=== PATIENT | female | born 1995 | race Caucasian/White ===

== ENCOUNTER 2024-02-24 09:51 | Outpatient (CLI) | payer OTHER, SELFPAY ==
--- OUTSIDE RECORDS SUMMARY | 2024-02-25 11:42 | XMS_ITS | Clinical Summary ---
Author Organization [facility] Address [address] [place] [id number] Care Team Providers Care Provider Relations Consultant Name Role Phone No Ref-Primary, Physician Primary Care Provider Allergies Active Allergy Reactions Criticality Noted Date Comments Penicillins Hives 12/03/2015 vomiting Medications Medication Sig Dispensed Refills Start Date End Date Status albuterol (PROAIR HFA/PROVENTIL HFA/VENTOLIN HFA) 108 (90 BASE) MCG/ACT Inhaler Inhale 2 puffs into the lungs as needed for shortness of breath / dyspnea or wheezing Active VITAMIN A PO Take 1 tablet by mouth daily Active Cholecalciferol (VITAMIN D PO) Take 1 tablet by mouth daily Active multivitamin w/minerals (MULTI-VITAMIN) tablet Take 1 tablet by mouth daily Active clomiPHENE (CLOMID) 50 MG tabletIndications:I nfertility management Take 2 tablets (100 mg) by mouth daily for 5 days Start taking medication on cycle day 3 10 tablet 09/12/2018 Active Active Problems Problem Noted Date Diagnosed Date Menorrhagia with regular cycle 10/27/2017 Dysmenorrhea 10/27/2017 Immunizations Name Administration Dates Next Due TDAP Vaccine (Boostrix) 02/16/2008 Family History Medical History Relation Comments Family History Negative Father Family History Negative Mother Breast Cancer Paternal Grandmother Breast Cancer Sister 1 Relation Status Comments Brother 1 Alive Brother 2 Alive Brother 3 Alive Brother 4 Alive Father Alive Mother Alive Paternal Grandfather Alive Paternal Grandmother Alive Sister 1 Alive Sister 2 Alive Sister 3 Alive Sister 4 Alive Social History Tobacco Use Types Packs/Day Years Used Date Smoking Tobacco: Never Smokeless Tobacco: Never Tobacco Cessation:Counseling Given: No Alcohol Use Standard Drinks/Week Comments No 0 (1 standard drink = 0.6 oz pur e alcohol) PHQ-2 Answer Date Recorded PHQ-2 Score 0 05/25/2018 Adolescent Education Answer Date Record ed Getting School Help Needed Not on file 02/05 Sex and Gender Information Value Date Recorded Sex Assigned at Not on file Gender Identity Not on file Sexual Orientation Not on file Last Filed Vital Signs Vital Sign Reading Time Taken Comments Blood Pressure 112/70 08/16/2018 10:10 AM CDT Pulse 68 06/23/2018 10:13 AM 5TH GRADE TEACHER Temperature 36.9 ??C (98.4 ??F) 05/30/2017 9:47 AM CS T Respiratory Rate 16 05/30/2017 9:47 AM 5TH GRADE TEACHER Oxygen Saturation 96% 05/30/2017 9:47 AM 5TH GRADE TEACHER Inhaled Oxygen Concentration - - Weight 61.7 kg (136 lb) 08/16/2018 10:10 AM CDT Height 165.1 cm (5' 5) 08/16/2018 10:10 AM CDT Body Mass Index 22.63 08/16/2018 10:10 AM CDT Plan of Treatment Not on file Care Teams Provider Relations Consultant Relationship Specialty Start Date End Date No Ref-Primary, Physician PCP - General 05/06/17
--- OUTSIDE RECORDS SUMMARY | 2024-02-25 11:42 | XMS_ITS | Referral Summary ---
Author Organization [facility] Address [address] [place] [address] Care Team Providers Care Performing Arts Road Manager Name Role Phone No Ref-Primary, Physician Primary [...] Dates Next Due TDAP Vaccine (Boostrix) 02/16/2008 Social History Tobacco Use Types Packs/Day Years [...] AM CDT Pulse 68 06/23/2018 10:13 AM RETAIL ADMINISTRATIVE ASSISTANT Temperature 36.9 ??C (98.4 ??F) 05/30/2017 9:47 AM CS T Respiratory Rate 16 05/30/2017 9:47 AM RETAIL ADMINISTRATIVE ASSISTANT Oxygen Saturation 96% 05/30/2017 9:47 AM RETAIL ADMINISTRATIVE ASSISTANT Inhaled Oxygen Concentration - - Weight 61.7 kg (136 lb) 08/16/2018 10:10 AM CDT Height 165.1 cm (5' 5) 08/16/2018 10:10 AM CDT Body Mass Index 22.63 08/16/2018 10:10 AM CDT Plan of Treatment Not on file Care Teams Performing Arts Road Manager Relationship Specialty Start Date End Date No Ref-Primary, Physician PCP - General 05/06/17
--- OUTSIDE RECORDS SUMMARY | 2024-02-25 11:42 | XMS_ITS | Clinical Summary ---
Author Organization [facility] Address [place], [place] [address] Care Team Providers Care Robotics Application Engineer Name Role Phone Darlin Curtis MD Primary Care Prov ider Allergies Active Allergy Reactions Criticality Noted Date Comments Penicillins Hives 12/03/2015 vomiting Medications Medication Sig Dispensed Refills Start Date End Date Status albuterol HFA (PRO-AIR,VENTOLIN,OK OVENTIL) 90 mcg/actuation inhalerIndications:A sthma, mild intermittent, with acute exacerbation Inhale 2 Puffs by mouth 4 times daily if needed. 2 Inhaler 1 10/26/2014 Active albuterol (PROVENTIL) 0.083 % neb solutionIndications: Asthma, mild intermittent, with acute exacerbation Inhale 3 mL via a nebulizer every 6 hours if needed for Shortness Of Breath. 1 box 1 10/26/2014 Active betamethasone dipropionate 0.05% (DIPROSONE 0.05% CREAM) 0.05 % creamIndications:Ecz caitlin, unspecified type apply to affected areas of lower abdomen twice daily for two weeks, then twice a week as needed 45 g 01/21/2023 Active FLUoxetine (PROZAC) 20 mg capsuleIndications:P ostpartum depression Take 2 Capsules (40 mg) by mouth every morning. 60 Capsule 5 08/23/2023 Active Active Problems Problem Noted Date Diagnosed Date Pap smear for cervical cancer screening 09/03/19 24 Overview (09/03/2023): 08/2023 NIL/HPV negative Plan: HPV based testing in 5 years History of depression 10/17/2022 PUPPP (pruritic urticarial p apules and plaques of ) 10/17/2022 Immunization not carried out because of caregive r refusal 06/19/2014 Immunization not carried out because of parent r efusal 06/19/2014 Schmorl's nodes of lumbar region 08/28/2009 HLA B27 positive 08/28/2009 L5-S1 Disk Bulge 08/23/2009 Resolved Problems Problem Noted Date Diagnosed Date Resolved Date (normal spontaneous vaginal delivery) 10/18/2022 11/30/2022 Liveborn 10/18/2022 11/30/2022 Nuchal cord with compression , delivered, current hospitalization 10/18/2022 11/30/2022 Umbilical cord around body 10/18/2022 0 11/30/2022 Meconium in amniotic fluid 10/18/2022 0 11/30/2022 High-risk , third trimester 10/17/2022 11/30/2022 Pre-eclampsia, third trimester 10/17/2022 11/30/2022 Supervision of res ulting from assisted reproductive technology 10/17/2022 023 Overview (10/17/2022): IVF 05/13/2020 11/30/2022 Overview (11/11/2020): Component Latest Ref Rng & Units 11/07/2020 Vaginal/Rectal OB Strep B PCR Negative Estimated Date of Delivery: 12/06/20 Patient's last menstrual period was 03/01/2020. Last Tdap- 09/25/2020 Last Flu vaccine- 02/13/2020 Glucose (GTT) result- Component Latest Ref Rng & Units 09/04/2020 HEMOGLOBIN 12.0 - 16.0 g/dL 12.3 MCV 80 - 100 fL 98 GLUCOSE,GESTATIONAL 65 - 139 mg/dL 116 TREPONEMA PALLIDUM Negative Negative 20 week US: FINDINGS: Sonographic imaging demonstrates a single living intrauterine gestation. Fetus demonstrates a regular cardiac rate of 147 beats per minute. Fetus has a breech position. The placenta lies posteriorly without evidence of placenta previa. Amniotic fluid volume appears normal. Single deepest vertical pocket: 4.3 cm. The cervix could not be visualized due to position. The composite ultrasound gestational age is calculated at 19 weeks 5 days with an estimated sonographic due date of 12/08/2020. Allergies Allergen Reactions ? ? Penicillins Hives vomiting OB History Para Term AB Living 1 0 0 0 0 0 SAB TAB Ectopic Multiple Live Births 0 0 0 0 0 # Outcome Date GA Lbr Masood/2nd Weight Sex Delivery Anes PTL Lv 1 Current Create lab flowsheet for OB labs- Component Latest Ref Rng & Units 05/06/2020 05/06/2020 05/06/2020 1:00 PM 1:00 PM 1:00 PM ANTIBODY SCREEN Negative Negative SPECIMEN EXPIRATION DATE/TIME 05/09/20 23:59 HEMOGLOBIN 12.0 - 16.0 g/dL 14.1 MCV 80 - 100 fL 91 PLATELET COUNT 140 - 440 thou/cu mm 213 MPV 6.5 - 11.0 fL 9.7 RUBELLA IGG ANTIBODY Positive 1.04 HEMOGLOBIN A1C SCREENING <=6.4 % 4.2 ABORH A Rh Positive HBSAG Nonreactive Nonreactive HEPATITIS C ANTIBODY Non-Reactive Non-Reactive HIV-1/HIV-2 ANTIBODY Non-Reactive Non-Reactive TREPONEMA PALLIDUM Negative Negative Past Medical History: . Date ? ? Exercise-induced asthma ? ? Radius and ulna distal fracture 3 years of age ? ? Sinusitis Past Surgical History: . Laterality Date ? ? NO PREVIOUS SURGERY No data on file. Problems (from 04/23/20 to present) No problems associated with this episode. Nilam Ramos RN.....05/13/2020 1:27 PM hypertension 11/14 Immunizations Name Administration Dates Next Due Influenza Virus, Unspecified 02/13/2020 Influenza, IIV4 03/09/2023 Influenza, IIV4 (=>6mos) MDV 04/14/2019 MMR 07/03/2014 Td, Preservative Free (age >= 7 Years) 5 Tdap 08/06/2022,09/25/2020,02/16/2008 Tuberculin (PPD) 05/07/2020,10/21/2015, 5 Family History Medical History Relation Name Alex [facility] Brother 1 Ernesto [facility] Brother 2 Alvin [facility] Brother 3 Benjy [facility] Brother 4 Job [facility] Father Asthma Mother Hypertension Mother Cancer-breast Sister 1 Annika [facility] Sister 2 Juanita [facility] Sister 3 Lamine [facility] Sister 4 Uma Relation Name Status Comments Brother 1 Ernesto Alive Brother 2 Alvin Alive Brother 3 Benjy Alive Brother 4 Job Alive Father Alive Mother Alive Sister 1 Annika Alive Sister 2 Juanita Alive Sister 3 Lamine Alive Sister 4 Uma Alive Social History Tobacco Use Types Packs/Day Years Used Date Smoking Tobacco: Never Smokeless Tobacco: Never Tobacco Cessation:Counseling Given: Yes Alcohol Use Standard Drinks/Week Comments Yes 0 (1 standard drink = 0.6 oz pur e alcohol) occasional PHQ-2 Answer Date Recorded PHQ-2 TOTAL SCORE 1 08/23/2023 Social Connections Answer Date Recorded Frequency of Communication with Friends and Fami ly 0 08/22/2023 Financial Resource Strain Answer Date R ecorded Difficulty of Paying Living Expenses 3 08/22/2023 Difficulty of Paying Living Expenses Not on file 08/22/2023 Food Insecurity Answer Date Recorded Worried About Running Out of Food in the Last Ye ar 1 08/22/2023 Transportation Needs Answer Date Record ed Lack of Transportation (Medical) 1 08/22/2023 Housing Stability Answer Date Recorded Unable to Pay for Housing in the Last Year 1 08/22/2023 Sex and Gender Information Value Date Recorded Sex Assigned at Female 04/17/2020 10:07 PM CHILD CARE WORKER Gender Identity Female 04/17/2020 10:07 PM CHILD CARE WORKER Sexual Orientation Not on file Obstetrics History Para Term AB IAB SAB Ectopic Multiple Livin g Live Births 2 2 2 0 0 0 0 0 0 2 2 Date Outcome GA Total Labor Labor/2nd/3rd Weight Sex Type Anes PTL Kelsey A1 A5 Name Clin 2020 Term 40w 0d 3.69 kg (8 lb 2 oz) M Vag N Livin g Complications:None Delivery Location:Hospital ( [facility]) 2022 Term 39w 3d 17h 30m 16h 57m/0h 04m/0h 29m 2.68 kg (5 lb 14.5 oz) M VAGINA L JON IV Meds Livin g 5 9 ,BB CADY Krishnan, Michelle lewis CNM Complications:Category II: I ndeterminate Delivery Location:Hospital ( [facility] [id number] [place]) Comments:Transfer from [facility]; IOL for pre-eclampsia, vaginal cytotec, Pitocin to max of 10mu/min, AROM, Fentanyl x 2, no laceration, QBL 150. Dc'ed on Labetalol. with esophageal atresia, repaired day 2. Last Filed Vital Signs Vital Sign Reading Time Taken Comments Blood Pressure 109/71 08/23/2023 3:29 PM CDT Pulse 71 08/23/2023 3:29 PM CDT Temperature 36.7 ??C (98 ??F) 11/01/2022 11:15 AM CDT Respiratory Rate 16 11/01/2022 11:15 AM CDT Oxygen Saturation 99% 08/23/2023 3:29 PM CDT Inhaled Oxygen Concentration - - Weight 74.2 kg (163 lb 9.6 oz) 08/23/2023 3:29 P M CDT Height 165.7 cm (5' 5.24) 08/23/2023 3:29 PM CD T Body Mass Index 27.03 08/23/2023 3:29 PM CDT Plan of Treatment Health Maintenance Due Date Last Done Comments COVID-19 vaccine series ( season) 2024 08/31/2022 Influenza for age 9-49 01/16/2024 3, 02/13/2020, 04/14/2019 BMI (ht and wt on same day) for age 18+ 08/22/2024 08/23/2023, 11/30/2022, 05/13/2020, Additional history exists Depression screening for age 12+ 08/22/2024 08/23/2023, 11/30/2022, 04/18/2021, Additional history exists Pap test for age 21-65 08/22/2028 4, 08/23/2023, 06/10/2020 Tetanus booster 08/06/2032 08/06/2022, 05/06/2020, 07/03/2014, Additional history exists Hepatitis C screening for age 18-79 Completed 12/04/2021, 05/06/2020 HIV for age 15-65 Completed 04/13/2022, , 05/06/2020 Tdap Completed 08/06/2022, 09/14, 02/16/2008 Pneumococcal series for age 6-64 Aged Out No longer eligible based on patient's age to complete this topic Procedures Procedure Name Priority Date/Time Associated Diagnosis Comments HPV HIGH RISK Routine 08/23/2023 3:51 PM CDT Screening for cervical cancer HIV EXTERNAL Routine 04/13/2022 ANTI HCV Routine 12/04/2021 11:46 AM CDT Fertility testing from Last 3 Months or Most Recently Relevant to Health Maintenance Results * HPV HIGH RISK (08/23/2023 3:51 PM CDT) TYPE 16 Negative Negative 08/26/2023 7:50 AM CDT [facility] TYPE 18 Negative Negative 08/26/2023 7:50 AM CDT [facility] OTHER HIGH RISK TYPES Negative Negative 08/26/2023 7:50 AM CDT [facility] Other (Cervical) Non-Blood / Unknown 08/23/2023 3:51 PM CDT 08/24/2023 3:16 PM CDT Narrative [facility] - 08/26/2023 7:50 AM CDT HPV types 16, 18, 31, 33, 35, 39, 45, 51, 52, 56, 58, 59, 66 and 68 DNA were undetectable or below the pre-set threshold. Methodology: Ginette Jessica 4800 HPV Test Kimberly Ann DO MICROBIOLOGY [facility] [address] [place] [address], * HIV EXTERNAL (04/13/2022) EXTERNAL HIV Negative [facility] Blood BLOOD SPECIMEN / Unknown [facility] [address] [place] [address] * ANTI HCV (12/04/2021 11:46 AM CDT) HEPATITIS C ANTIBODY Non-React regulo Non-React regulo 12/04/2021 7:04 PM CDT [facility] Comment:Antibodies to HCV no t detected; does not exclude the possibility of exposure to HCV. Blood BLOOD SPECIMEN / Unknown Venipuncture / Unknown 12/04/2021 11:46 AM CDT 12/04/2021 11:47 AM CDT Darlin Curtis MD SEND OUTS [facility] [address] [place] [address], from Last 3 Months or Most Recently Relevant to Health Maintenance Advance Directives * Full Code (Latest Code Status on File) Date Activated Date Inactivated Comments 10/17/2022 4:59 PM 10/19/2022 6:52 PM Question Answer Comments Code Status Discussion: Reviewed Preferences Care Teams Robotics Application Engineer Relationship Specialty Start Date End Date Darlin Curtis MD [address] [place] [address] PCP - General Family Practice 03/11/13
== END 2024-02-24 09:52 | disposition home or self-care (01) ==
LOC: NFLDREF 02-25 11:35
PROVIDERS: PCP Family Medicine; Referring Provider Family Medicine; Visit Provider Physician Assistant
DX: N39.0 Urinary tract infection, site not specified (principal); B95.7 Other staphylococcus as the cause of diseases classified elsewhere
CPT/HCPCS: 87086; 87186

== ENCOUNTER 2024-12-08 10:39 | Outpatient (CLI) | payer OTHER, SELFPAY | END 2024-12-08 10:40 | disposition home or self-care (01) | PROVIDERS: PCP Family Medicine; Visit Provider Physician Assistant Surgical | DX: M79.10 Myalgia, unspecified site (principal) | CPT/HCPCS: 80053; 82550; 83735; 84100; 87086 ==

== ENCOUNTER 2024-12-08 12:54 | Emergency (ER) | payer OTHER, SELFPAY ==
--- OUTSIDE RECORDS SUMMARY | 2024-12-08 12:56 | XMS_ITS | Clinical Summary ---
Author Organization [facility] Address [address] [place] [id number] Care Team Providers Care Dry Cans Back Tender Name Role Phone Darlin Curtis MD Primary Care Prov ider Allergies Active Allergy Reactions Criticality Noted Date Comments Penicillins Hives 12/03/2015 vomiting Medications albuterol HFA (PRO-AIR,VENTOLIN ,PROVENTIL) 90 mcg/actuation inhalerIndication s:Asthma, mild intermittent, with acute exacerbation Inhale 2 Puffs by mouth 4 times daily if needed. 2 Inhaler 1 5 Active albuterol (PROVENTIL) 0.083 % neb solutionIndicatio ns:Asthma, mild intermittent, with acute exacerbation Inhale 3 mL via a nebulizer every 6 hours if needed for Shortness Of Breath. 1 box 1 5 Active ondansetron (ZOFRAN) 4 mg tabletIndications :High-risk , first trimester (HC) Take 1-2 Tablets (4-8 mg) by mouth every 8 hours if needed for Nausea/Vomitin g. 30 Tablet 1 5 Active aspirin chewable 81 mg chewable tabletIndications :History of pre-eclampsia,Hig h-risk , first trimester (HC) Chew 1 Tablet (81 mg) by mouth once daily. Take from 12 weeks-38 weeks of 90 Tablet 2 5 Active multivitamin () 27 mg iron- 800 mcg folic Take 1 Tablet by mouth once daily with a meal. 5 Active cholecalciferol, Vitamin D3, (Vitamin D-3) 5,000 unit tab tablet Take 1 Tablet (5,000 units) by mouth once daily. 5 Active Nydjk-2-PRQ-EPA-F kleber Oil 1,200 (144-216) mg capsule Take by mouth. Active FLUoxetine (PROZAC) 20 mg capsuleIndication s: depression Take 2 Capsules (40 mg) by mouth once daily in the morning. 180 Capsule 5 Active ursodioL 300 mg capsuleIndication s:Itching of both hands Take 1 Capsule (300 mg) by mouth three times daily with meals. 90 Capsule 3 5 Active cyclobenzaprine (FLEXERIL) 10 mg tabletIndications :Generalized muscle ache Take 0.5-1 Tablets (5-10 mg) by mouth three times daily. 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 Final Estimated Date of Delivery: 01/20/25 by IVF, LMP FOB: David sex: ___ High Risk? 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 -Had genetic testing-WNL -Level II US-ordered at initial OB visit: WNL, except some missing anatomy, repeat 4 weeks -Growth US at 28-32 weeks, again at 36 weeks with [facility] Overview: GA at 1OB: 10w2d Blood type: A Rh Positive Pre-gravid BMI Could not be calculated, goal TWG Could not be calculated at term Aspirin 81 mg indicated: yes for h/o pre-eclampsia HSV: no Domestic violence: no Accepting of blood products: yes [facility] Supervision of high-risk 5 Overview (09/19/2024): Coretta Petersen : 1995 REFERRING PROVIDER/CLINIC LOCATION/FAX #: Anastasiia Lobato, DANICA Matson ELS Primary MD approves scheduling of recommended ultrasounds/testing: Yes [facility] ULTRASOUND/TESTING PATIENT Support person name: David ULTRASOUND TYPE: 09/25 Growth REASON FOR VISIT: IVF, hx child VACTERL NEXT VISIT ALERTS: The following anatomy was not seen well on L2: Profile, left foot, sacral spine Final GHANSHYAM by IVF LMP Date: Patient's last menstrual period was 04/16/2024 (exact date). GHANSHYAM: 01/21/25 Early US: Date: 06/05/24 GA: 7w2d GHANSHYAM: IVF GHANSHYAM: 01/20/25 PrePregnancy Weight: 163 Height: 5'5 BMI: 27 PLANS & FUTURE APPOINTMENTS: ULTRASOUND/GROWTH PLAN: Growth US at 28-32w - Through: - Growth: Next TESTING PLAN: weekly at 36w - Testing: Through DELIVERY PLAN: - Scheduled delivery: - Preferred delivery location: PRIMARY DIAGNOSIS: 28 y.o. Estimated Date of Delivery: 01/20/25 IVF Anemia Anxiety/depression Asthma 2022 Term (transfer from Center - IOL for PreE. Son born with VACTERL syndrome - esophageal atresia, TE fistula, tracheomalacia, ASD, PDA. Currently has tracheostomy and feeding tube. Genetic screening negative) 2020 Term PREVIOUS ULTRASOUNDS: 09/25/24 23w2d 08/28/24 19w2d EFW 275 grams, percentile: 45. ECHO: SPECIALISTS/CONSULTS: Include: Specialty MD Clinic Name Phone# [place] and ADDED TO PATIENT CARE TEAM Yes GENETICS: NIPS: Low Risk MPP GC 08/28/24 CARE COORDINATION: PERTINENT LABS: Labs reviewed? Yes Normal? Yes Blood type: A Rh Positive Antibody screen: Negative PERTINENT MEDS: bASA Prozac PROCEDURES: IF FGR <10% or EFW <2000 grams: Add FGRPCOM PLAN OF CARE: 08/28 per JKE RECOMMENDATIONS: -Return to primary provider for continued care. -No alterations in the delivery plan are necessary. -Continue LDASA for pre-eclampsia risk reduction. -Baseline serum HELLP labs were checked and unremarkable; please complete urine P:C at next visit. -Weekly NST/BPPs starting at 36 weeks. -Follow-up US in 4w for growth and to follow-up anatomy not well seen on today's study. -Growth US at 28-32w; consider final growth at 36w due to history of EA diagnosis. Pap smear for cervical cancer screening 09/03/19 24 Overview (09/03/2023): 08/2023 NIL/HPV negative Plan: HPV based testing in 5 years History of depression 10/17/2022 Immunization not carried out because of parent r efusal 06/19/2014 Schmorl's nodes of lumbar region 08/28/2009 HLA B27 positive 08/28/2009 L5-S1 Disk Bulge 08/23/2009 Estimated Date of Delivery Comme nts Yes 01/20/2025 Resolved Problems Problem Noted Date Diagnosed Date Resolved Date (normal spontaneous vaginal delivery) 10/18/2022 11/30/2022 Liveborn infant 10/18/2022 11/30/2022 Nuchal cord with compression , delivered, current hospitalization 10/18/2022 11/30/2022 Umbilical cord around body 10/18/2022 0 11/30/2022 Meconium in amniotic fluid 10/18/2022 0 11/30/2022 High-risk , third trimester 10/17/2022 11/30/2022 Pre-eclampsia, third trimester 10/17/2022 11/30/2022 PUPPP (pruritic urticarial p apules and plaques of ) 10/17/2022 09/25/2024 Supervision of res ulting from assisted reproductive [...] due date of 12/08/2020. Allergies Allergen Reactions Penicillins Hives vomiting OB History Para Term [...] Negative Negative Past Medical History: . Date Exercise-induced asthma Radius and ulna distal fracture 3 years of age Sinusitis Past Surgical History: . Laterality Date NO PREVIOUS SURGERY No data on file. Problems (from 04/23/20 to present) No problems associated with this episode. Nilam Ramos RN.....05/13/2020 1:27 PM Immunization not carried out because of caregiver refusal 06/19/2014 06/26/2024 hypertension 11/14 Encounters Date Type Department Care Team Description 12/08/[address] [facility] [address] [place] [address] Laquita Cameron CNM Musculoskeletal Problem (Musculoskeletal Pain.) 12/08/2024 Nurse Triage [facility] [address] [place] [address] Michelle Krishnan CNM Error-please disregard 12/07/2024 Telephone [facility] [address] [place] [address] Anastasiia Lobato CNM Medication Management (ALL OVER BODY PAIN, CAN SHE TAKE MORE THAN TYLENOL?) 12/05/2024 4:59 PM CDT - 12/05/2024 7:22 PM CDT Hospital Encounter [facility] [address] [place] [id number] Chasity Sunshine CNM Discharge Disposition: Home Self Care 12/05/2024 Hospital Encounter [facility] [address] [address] 12/05/[address] [facility] [address] [place] [address] Chasity Sunshine CNM Follow Up 12/05/[address] [facility] [address] [place] [address] Chasity Sunshine CNM Follow Up 12/04/2024 Travel 11/29/2024 4:20 PM CDT OB Encounter [facility] [address] [place] [address] Michelle Krishnan CNM Care (32 Weeks) 11/29/2024 3:15 PM CDT Ancillary Procedure [facility] [address] [place] [place] [address] 11/29/2024 Travel 11/21/2024 Travel 11/08/2024 Travel 11/08/[address] [facility] [address] [place] [address] Chasity Sunshine CNM <No scans attached> 11/08/2024 Telephone [facility] [address] [place] [address] Michelle Krishnan CNM Questions (Itching) 10/24/2024 9:30 AM CDT Orders Only [facility] [address] [place] [address] Laboratory, Ablm Lab 10/23/2024 Travel 10/17/2024 Orders Only [facility] [address] [place] [address] Michelle Krishnan CNM <No scans attached> 10/16/2024 3:20 PM CDT OB Encounter [facility] [address] [place] [address] Michelle Krishnan CNM Care 10/16/2024 Travel 10/14/2024 Travel 09/25/2024 2:21 PM CDT - 09/25/2024 11:59 PM CDT Hospital Encounter [facility] [address] [facility] [place] [address] Sara Mendiola, Pili Correia MD resulting from assisted reproductive technology in second trimester (HC) (Primary Dx); Supervision of high risk in second trimester (HC) 09/25/2024 Travel from Last 3 Months Immunizations Immunization Administration Dates Next Due Influenza Virus, Unspecified 02/13/2020 Influenza, IIV4 03/09/2023 Influenza, IIV4 (=>6mos) MDV 04/14/2019 MMR 07/03/2014 Td, Preservative Free (age > = 7 Years) 07/03/2014 Tdap 11/29/2024, 3,09/25/2020,2007 Tuberculin (PPD) 05/07/2020,10/21/2015, 5 Family History Medical History Relation Name Comments Good Health Brother 1 Ernesto Good Health Brother 2 Alvin Good Health Brother 3 Benjy Good Health Brother 4 Job Good Health Father Asthma Mother Hypertension Mother Cancer-breast Sister 1 Annika Miscarriages / Stillbirths Sister 1 Annika Good Health Sister 2 Juanita Miscarriages / Stillbirths Sister 2 Juanita Preeclampsia Sister 2 Juanita Good Health Sister 3 Lamine Good Health Sister 4 Uma Esophageal atresia Son defects No Family History Chromosomal disorder No Family History Congenital heart disease No Family History Relation Name Status Comments Brother 1 Ernesto Alive Brother 2 Alvin Alive Brother 3 Benjy Alive Brother 4 Job Alive Father Alive Mother Alive Sister 1 Annika Alive Sister 2 Juanita Alive Sister 3 Lamine Alive Sister 4 Uma Alive Son Social History Tobacco Use Types Packs/Day Years Used Date Smoking Tobacco: Never Smokeless Tobacco: Never Tobacco Cessation:Counseling Given: Yes Alcohol Use Standard Drinks/Week Comments Not Currently 0 (1 standard drink = 0.6 oz pur e alcohol) occasional PHQ-2 Answer Date Recorded PHQ-2 TOTAL SCORE 0 10/16/2024 Social Connections Answer Date Recorded Do you often feel lonely or isolated from those around you? 0 09/06/2024 Financial Resource Strain Answer Date R ecorded Difficulty of Paying Living Expenses 3 09/06/2024 Difficulty of Paying Living Expenses Not on file 09/06/2024 Food Insecurity Answer Date Recorded Do you worry your food will run out before you are able to buy more? 1 09/06/2024 Transportation Needs Answer Date Record ed Does lack of transportation keep you from medica l appointments? 1 09/06/2024 Does lack of transportation keep you from work, meetings or getting things that you need? 1 09/06/2024 Housing Stability Answer Date Recorded What is your housing situation today? 1 09/06/2024 Interpersonal Safety Answer Date Record ed Are you being hit, kicked, p ushed or yelled at (see row info)? No 12/05/2024 Interpersonal Safety Abuse 12 - 18 Not on file 12/05/2024 Interpersonal Safety Ambulatory Vulnerability No t on file 12/05/2024 Utilities Answer Date Recorded Do you have trouble paying f or utilities (for example, heat, electricity, water, phone)? 1 09/06/2024 Estimated Date of Delivery Comme nts Yes 01/20/2025 Sex and Gender Information Value Date Recorded Sex Assigned at Female 04/17/2020 10:07 PM MECHANICAL TECHNICIAN Legal Sex Female 5:27 AM MECHANICAL TECHNICIAN Gender Identity Female 04/17/2020 10:07 PM MECHANICAL TECHNICIAN Sexual Orientation Not on file Obstetrics History Para Term AB IAB SAB Ectopic Multiple Livin g Live Births 3 2 2 0 0 0 0 0 0 2 2 Date Outcome GA Total Labor Labor/2nd/3rd Weight Sex Type Anes PTL Vicky A1 A5 Name Clin 2020 Term 40w 0d 3.69 kg (8 lb 2 oz) M Vag N Livin g Stephe n Complications:None Delivery Location:Hospital ( [facility]) Comments:Normal pregna ncy, SROM, spontaneous labor, unmedicated, small tear 2022 Term 39w 3d 17h 30m 16h 57m/0h 04m/0h 29m 2.68 kg (5 lb 14.5 oz) M VAGINA L JON IV Meds Livin g 5 ,BB CADY Krishnan, Michelle lewis CNM Complications:Category II: I ndeterminate Delivery Location:Hospital ( [address]) Comments:Transfer from [facility]; IOL for pre-eclampsia, vaginal cytotec, Pitocin to max of 10mu/min, AROM, Fentanyl x 2, no laceration, QBL 150. Dc'ed on Labetalol. with esophageal atresia, repaired day 2. Current Summary Episode Dates Number of Fetuses Estimated Date of Delivery 06/26/2024 - Present (12/08/2024) 1 01/20/2025 (set by Anastasiia Lobato CNM on 06/26/2024 based on Alternate GHANSHYAM Entry) Dating Summary Based On GHANSHYAM GA Diff Last Menstrual Period on 04/16/2024 (Exact Date) 01/21/2025 -1d Alternate GHANSHYAM Entry 01/20/2025 Working Vitals Pregravid Weight Height TWG (As of 12/08/2024) Pregrav id BMI 73.9 kg (163 lb) 1.651 m (5' 5) 20 kg (44 lb) 27.12 Date GA Fund Present FHR Mvmt BP Weight Edema Alb Glu Ket Dil/ Eff/Sta 5 19w2d Inpatient data not displayed here. See encounter summary. 5 23w2d Inpatient data not displayed here. See encounter summary. 5 33w3d Inpatient data not displayed here. See encounter summary. Notes Progress Notes - Hospital En counter - 12/05/2024 - GA:33w3d 12/05/2024 - 33w3d - Cathy Salmon RN Pt came in from home with complaints of lower back pain that radiates into her abdomen. Pt denies headache, visual changes, epigastric pain, leaking of fluid, nausea, decrease movement, or any other concerns. EFM applied with consent. VSS. has been complicated by hx of pre e, IVF. Cervix checked. Plan to orally hydrate with tylenol and see what happens with contractions. Will continue to monitor. At 1900, patient states she is having back pain still but the abdomen pain is gone. Chasity MISHRA notified and states it is okay for patient to discharge. AVS given. Education and emotional support provided. Discharged home undelivered. 12/05/2024 - 33w3d - Chasity Sunshine CNM DANICA MAC TRIAGE NOTE HPI: Coretta Petersen is a 29 y.o. with an IUP at 33w3d. Estimated Date of Delivery: 01/20/25. She presents to L&D for back cramping/pain for several hours. Pt states baby is active, denies loss of fluid, change in discharge, or bloody show. Allergies: Penicillins Present OB history Active Problems: * No active hospital problems. 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 Z82.79 resulting from assisted reproductive technology (HC) O09.819 High-risk , third trimester (HC) O09.93 [facility] Supervision of high-risk O09.90 Family historic risk of congenital abnormality, not applicable or unspecified fetus (HC) O35.8XX0 H/O pre-eclampsia in prior , currently , second trimester () O09.292 Elevated glucose level R73.09 PE: LMP 04/16/2024 (Exact Date) ABD: FHT's 140 with moderate variability, + accelerations, - decelerations Contractions every 8-9 minutes lasting 50-70 seconds palpating mild Reactive NST Pelvic: Cx 0 dilated/ 50 % effaced/ -2 station. Vtx Recent Labs 11/08/24 1538 AST 21 ALT 15 Impression: 29 y.o. at 33w3d gestation with: Plan: NST Preeclampsia evaluation due to elevated BP upon admission 1000mg Tylenol now for discomfort Plan to evaluated ctx pattern and pain in 1-2 hours Encouraged oral water intake Teaching done r/t to s/s of labor, SROM, decreased movement, comfort measures in third trimester. Instructed to call CNM for any questions or concerns. Pt verbalizes understanding and agreement with current POC. Chasity Sunshine CNM........12/05/2024 Total Time: 60 Counseling Time: 20 Progress Notes - OB Encounte r - 11/29/2024 - GA:32w4d 11/29/2024 - 32w4d - aMrina Krishnan CNM 29 y.o. with SIUP at 32w4d Accompanied by self to visit Reimbursement Coordinator: NA Concerns today: Started taking Ursodiol stopped once lab results came back and itching has not returned. Baby active daily Denies contractions, leaking fluid, bleeding. Denies headaches, vision changes, right upper quadrant pain. Reviewed weight and BP (+9 lbs since last visit) TW.7 kg (43 lb 6.4 oz) Reviewed lab results from last visit: GLUCOSE,GESTATIONAL (mg/dL) Date Value 09/04/2020 116 GLUCOSE, GESTATIONAL SCREEN (50G)-140 CUTOFF (mg/dL) Date Value 10/16/2024 155 (H) HEMOGLOBIN (g/dL) Date Value 10/19/2022 10.9 (L) HEMOGLOBIN (g/dL) Date Value 10/16/2024 11.6 (L) PLATELET COUNT (thou/cu mm) Date Value 10/19/2022 195 PLATELET COUNT (Thousand/uL) Date Value 10/16/2024 261 TREPONEMA PALLIDUM (no units) Date Value 07/25/2024 Non-Reactive 09/04/2020 Negative Blood type: A Rh Positive Rhogam: Not indicated TDAP vaccine:Given with patient consent Plan: Orders Placed This Encounter US OB BIOPHYSICAL PROFILE SINGLE W NST US OB FOLLOW UP ANY TRI SINGLE TA TDAP VACCINE IM The Compass summary has been reviewed. Problem list updated. Teaching: movement, labor , warning signs, TDAP recommendations, and When and how to call CNM Reviewed AVS with patient and has no other questions. Michelle Krishnan CNM Progress Notes - OB Encounte r - 10/16/2024 - GA:26w2d 10/16/2024 - 26w2d - Marina Krishnan CNM Images from the original note were not included. 29 y.o. with SIUP at 26w2d Accompanied by self to visit today. Reimbursement Coordinator: NA Concerns today: None Baby active daily. Reviewed weight and BP (+9 lbs since last visit) TW.3 kg (25 lb) Labs collected: Glucose test, Hemoglobin, Platelet count, Treponema, and Baseline pre-eclampsia labs Ok to release results to my chart. Baseline pre-eclampsia labs collected: yes Blood type: A Rh Positive DEPRESSION SCREEN PHQ Score and Severity 08/23/2023 3:00 PM 06/27/2024 10:55 AM PHQ Depression Screening Date of PHQ exam (doc flow) 08/23/2023 06/27/2024 1. Lack of interest/pleasure 0 - Not at all 1 - Several days 2. Feeling down/depressed 1 - Several days 1 - Several days PHQ-2 TOTAL SCORE 1 2 3. Trouble sleeping 0 - Not at all 1 - Several days 4. Decreased energy 2 - More than half the days 2 - More than half the days 5. Appetite change 0 - Not at all 1 - Several days 6. Feelings of failure 0 - Not at all 2 - More than half the days 7. Trouble concentrating 0 - Not at all 1 - Several days 8. Activity level 0 - Not at all 0 - Not at all 9. Hurting yourself 0 - Not at all 0 - Not at all PHQ-9 TOTAL SCORE 3 9 PHQ-9 Severity Level none mild Functional Impairment somewhat difficult somewhat difficult Patient-reported Intervention: Not Depressed Plan: Rhogam at next visit: No TDAP: Discuss at next visit The Compass summary has been reviewed. Problem List updated. Teaching: movement, labor , warning signs, When and how to call CNM, and SROM Next visit at 32 weeks. Reviewed AVS with patient and has no other questions. Michelle Krishnan CNM ' Progress Notes - OB Encounte r - 09/06/2024 - GA:20w4d 09/06/2024 - 20w4d - Marni Avila CNM Estimated Date of Delivery: 01/20/25, 20+4 Complaints: Feeling good. Nausea much better now. Having baby boy, will have 3 boys at home! Denies loss of fluid/bleeding/cxs. Quickening: yes Reviewed weight and b/p (+ 3lbs since last visit, TWG 25lbs) Hx of preeclampsia: baseline PCR ordered today IVF: reviewed plan for weekly testing at 36 weeks. Reviewed ultrasound and lab results. All WNL except rubella NI. Genetic screening: low risk, baby boy Anatomy ultrasound ordered: yes, reviewed with patient, follow up US scheduled for 09/25 for poor visualization of profile, left food, sacral spine Early GCT indicated: Hgb 4.6% bASA indicated: yes, pt taking daily Plan: Teaching: when and how to call. Reviewed AVS; no other questions. Compass reviewed and updated. RTC in 6 weeks, or sooner as needed. 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 For negative family history information, please see scans for GC Questionnaire. Coretta and David have two sons - their oldest will be [age] years-old in November and their youngest will be 2 years-old in October. Their younger son has VACTERL association with multiple congential anomalies noted after . He has esophageal atresia and tracheoesophageal fistula, PDA, ASD, kidney anomalies (reflux), a spine anomaly, laryngeal cleft and tracheomalacia. He has had extensive genetic testing including trio genome sequencing and chromosome analysis. The couple reports all genetic testing has been negative at this time. Family history is otherwise unremarkable. Risk Assessment: Discussed the family history, epidemiology and natural history of VACTERL association along with possible underlying causes including genetic factors. We discussed the family history of VACTERL association in their younger son. VACTERL is a group of conditions that occur together. The name is based on an acronym for the affected organs and systems (V -- the vertebrae (bones of the spinal column), A --anus, C --cardiac anomalies, T-- trachea, E-- esophagus (the tube food enters when you swallow), R --renal (kidney) anomalies, L --limb differences). An estimated 1/10-40,000 babies born have VACTERL. There is not a single identifiable cause of VACTERL association. It is thought to be caused by a combination of underlying genetic and environmental factors. There are a few reported instances of familial cases but largely VACTERL is understood to occur sporadically rather than through inherited risk factors. There is not a significant increased chance for subsequent pregnancies or for other first degree relatives to have VACTERL or a affected with VACTERL when a family member has VACTERL association. We also reviewed tracheoesophageal fistula in more detail. Esophageal atresia (EA) and tracheoesophageal fistula (TEF) are congenital gastrointestinal anomalies where the esophagus and trachea don't separate normally during development. A TEF can occur as an isolated condition or with other defects including a syndrome or chromosome abnormality. About half of infants with an EA/TEF have another defect with other GI defects and cardiac defects being the most common of these. Esophageal atresia and/or tracheoesophageal fistula (EA/TEF) remains one of the most frequently missed congenital anomalies prenatally. [place] ultrasound findings that may suggest an EA/TEF include a small or absent stomach on an early ultrasound (around 15w) and polyhydramnios in second trimester. Additionally, the diagnostic finding of an esophageal pouch can be identified as early as 22w. In one study, on the mid-trimester scan, 19.4% of scanned cases were suspected and 4.3% were detected. Greater than 50% of EA/TEF cases were not suspected or identified by ultrasound in this cohort of 75 postnatally confirmed cases of EA/TEF cases (PMID: [id number]). Approximately a quarter (20-25%) of cases of EA/TEF have an underlying syndrome or association such as VACTERL association. In the absence of a known genetic syndrome, the recurrence risk for EA/TEF is estimated to be ~1-2% for future pregnancies (Gehlen et al., 202). Discussed Coretta's low risk cfDNA screening result. The low risk cell-free DNA screening test (Panorama) decreases the risk for this to be affected by one of the common chromosomal conditions to less than 1/10,000. This significantly reduces, but does not eliminate, the possibility for a chromosomal difference in this . Please see scans for report. Discussion: Coretta presented today for genetic counseling regarding the family history of a previous child with VACTERL association. The couple has had extensive genetic testing and counseling with their son so much of today's consult was familiar. We reviewed the anomalies their son was born with and the diagnosis of VACTERL association. For many of these cases, there is not a known single genetic cause. However, it is likely there are genetic factors involved in the occurrence of his defects. As genetic testing has been uninformative and there is no other significant family history, the overall recurrence risk is likely low. We discussed the use of ultrasound in identifying congenital anomalies like EA/TEF. These can present with subtle findings that are often missed on ultrasound. Knowing the family history is useful in ensuring we are doing a thorough and careful scan. The couple noted their main goal is ruling out any congenital anomalies we are able to at this time. I explained our perinatologist will meet with the couple following the ultrasound to review any recommendations. At this time, there is no indication for additional genetic testing outside of the routine cell free DNA screening the couple has already had. We reviewed the low risk screening result and the benefits and limitations. The couple verbalized their understanding of our consult today and have no further questions at this time. Plan: Coretta elected to proceed with the level II ultrasound after today s consult. Coretta also saw Dr. Sara Norwood today; please see her notes for further details regarding today's appointment. Thank you for allowing us to participate in your patient's care. Please do not hesitate to contact me with any additional questions or concerns. Sincerely, Debo Jacobs MS, [facility] [place] Licensed Genetic Counselor Total time: 35 minutes Total [id number] time: 15 minutes; Total time preparing to see this patient and coordinating care time on the same calendar date: 20 minutes. [facility] [place] [address], [address] [place] [address] Progress Notes - OB Encounte r - 07/25/2024 - GA:14w3d 07/25/2024 - 14w3d - Lacy Cameron CNM 29 y.o. with [facility] at 14w3d Concerns today: Needs refill on prozac. Feels like the first trimester symptoms are getting better. TW.2 kg (22 lb 6.4 oz) Reviewed ultrasound Needs OB labs collected Genetic screening: yes AFP offered: no Anatomy ultrasound ordered: Yes, level II Early GCT indicated: Yes, declines GCT but consents to Hemoglobin A1C Plan: Orders Placed This Encounter DNA SCREEN SEND OUT HEMOGLOBIN A1C FLUoxetine (PROZAC) 20 mg capsule The Compass summary has been reviewed. Problem list updated. Teaching: Nutrition/hydration, Glucose screening, Genetic testing, Normal physiological changes, Comfort measures, movement, and Warning signs Reviewed AVS with patient and has no other questions. Follow up visit in 6 weeks, sooner as needed. . Laquita Cameron CNM Progress Notes - Telemedicin e - 06/26/2024 - GA:10w2d 06/26/2024 - 10w2d - Volodymyr-Anastasiia Rabago CNM FIRST OBSTETRICAL EXAM - CNM HPI: Coretta Petersen is a 28 y.o. female, , here today to establish care with the [facility]. Previous [facility] patient yes. Gestational Age: 10w2d LMP: Patient's last menstrual period was 04/16/2024 (exact date). Estimated Date of Delivery: 01/20/25. Based on IVF. 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 The patient and I mutually agree that this visit is appropriate for telemedicine as well. Patient location (originating site city/state): Home Provider location (distant site city/state): [place], [place] Video start time (include am/pm designation): 9:58AM Video end time (include am/pm designation): 10:40AM Total time preparing to see this patient, [id number] time, and coordinating care time on the same calendar date: 60 minutes. Patient Concerns Today: Nausea/vomiting. Worse in the evenings. Able to tolerate food/fluids in the morning. Taking Vitamin B6 and Unisom daily; Zofran occasionally. Needs refill. 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 Previous care for this : No, FOB: David, involved Other children: Wolf Valdez symptoms: nausea, vomiting several times/day, and fatigue Bleeding since LMP: No Blood type: A Rh Positive Pre- weight: 170 lbs Pre- BMI: Could not be calculated Dietary restrictions: not asked Preferred language: Citizen Of [place] ALLERGIES Allergies Allergen Reactions Penicillins Hives vomiting CURRENT MEDICATIONS Current Outpatient Medications: albuterol (PROVENTIL) 0.083 % neb solution, Inhale 3 mL via a nebulizer every 6 hours if needed for Shortness Of Breath., Disp: 1 box, Rfl: 1 albuterol HFA (PRO-AIR,VENTOLIN,PROVENTIL) 90 mcg/actuation inhaler, Inhale 2 Puffs by mouth 4 times daily if needed., Disp: 2 Inhaler, Rfl: 1 aspirin chewable 81 mg chewable tablet, Chew 1 Tablet (81 mg) by mouth once daily. Take from 12 weeks-38 weeks of , Disp: 90 Tablet, Rfl: 2 cholecalciferol, Vitamin D3, (Vitamin D-3) 5,000 unit tab tablet, Take 1 Tablet (5,000 units) by mouth once daily., Disp: , Rfl: FLUoxetine (PROZAC) 20 mg capsule, Take 2 Capsules (40 mg) by mouth every morning., Disp: 60 Capsule, Rfl: 5 Zxujg-0-VIX-EPA-Fish Oil 1,200 (144-216) mg capsule, Take by mouth., Disp: , Rfl: ondansetron (ZOFRAN) 4 mg tablet, Take 1-2 Tablets (4-8 mg) by mouth every 8 hours if needed for Nausea/Vomiting., Disp: 30 Tablet, Rfl: 1 multivitamin () 27 mg iron- 800 mcg folic, Take 1 Tablet by mouth once daily with a meal., Disp: , Rfl: Medications have been reviewed by me and are current to the best of my knowledge and ability. Reviewed yes MENSTRUAL HISTORY Patient's last menstrual period was 04/16/2024 (exact date). regular q 28-30 days Was LMP normal?: yes Conception date known Yes, IVF OB HISTORY OB History Para Term AB Living 3 2 2 0 0 2 SAB IAB Ectopic Multiple Live Births 0 0 0 0 2 # Outcome Date GA Lbr Masood/2nd Weight Sex Type Anes PTL Lv 3 Current 2 Term 10/18/22 39w3d 16:57 / 00:04 2.68 kg (5 lb 14.5 oz) M VAGINAL JON IV MEDS VICKY Comments: Transfer from [facility]; IOL for pre-eclampsia, vaginal cytotec, Pitocin to max of 10mu/min, AROM, Fentanyl x 2, no laceration, QBL 150. Dc'ed on Labetalol. Infant with esophageal atresia, repaired day 2. Complications: Category II: Indeterminate Name: JEANMARIE PETERSEN Apgar1: 5 Apgar5: 9 1 Term 12/07/20 40w0d 3.69 kg (8 lb 2 oz) M Vag N VICKY Comments: Normal , SROM, spontaneous labor, unmedicated, small tear Name: José Miguel Previous OB complications (recurrent loss/miscarriage, demise, abnormal growth, labor / dilation / , gestational diabetes, gestational HTN, preeclampsia, shoulder dystocia, vacuum/forceps delivery, , hemorrhage, trauma, 3rd/4th degree lacerations, NICU admission): H/o pre-eclampsia Genetic Hx/factors (maternal or paternal known history of personal or familial genetic mutations or disorders, developmental delay/disorder, autism, congenital anomalies including blindness or deafness, or other known genetic conditions): H/o baby with esophageal atresia (diagnosed at , repair on day 2). Familial risk factors (first-order relatives with diabetes, hypertension, preeclampsia, recurrent loss, DVT/PE, stroke, genetic mutations): Hypertension in mother, preeclampsia in sister. ENVIRONMENTAL SPECIALIST HISTORY Last PAP: 08/23/23 PAP due: 2028 History of abnormal PAP smear: no History of Colposcopy: no History of LEEP/Laser/Cryo: no Hx of breast / abdominal / uterine surgery: no STD HX: no HSV: no CHLAMYDIA PROBE Date Value Ref Range Status 06/10/2020 Negative Final N GONORRHOEAE PROBE Date Value Ref Range Status 06/10/2020 Negative Final PAST MEDICAL HISTORY Past Medical History: . Date Anemia Anxiety Depression Exercise-induced asthma Lumbar herniated disc Pre-eclampsia Radius and ulna distal fracture 3 years of age Sinusitis PAST SURGICAL HISTORY Past Surgical History: . Laterality Date Egg Retrieval IVF NO PREVIOUS SURGERY FAMILY HISTORY Family History Problem Relation Age of Onset Hypertension Mother Asthma Mother Good Health Father Cancer-breast Sister 35 Miscarriages / Stillbirths Sister Miscarriages / Stillbirths Sister Good Health Sister Preeclampsia Sister Good Health Sister Good Health Sister Good Health Brother Good Health Brother Good Health Brother Good Health Brother Other (Esophageal atresia) Son Chromosomal disorder No Family History defects No Family History Congenital heart disease No Family History SOCIAL HISTORY Social History Tobacco Use Smoking Status Never Smokeless Tobacco Never Social History Socioeconomic History Marital status: Tobacco Use Smoking status: Never Smokeless tobacco: Never Vaping Use Vaping status: Never Used Substance and Sexual Activity Alcohol use: Yes Comment: occasional Drug use: No Sexual activity: Yes Partners: Male Social History Narrative Prefers to be called Coretta, pronouns she/her Preferred language: Citizen Of [place] , Partner's name: David Other children: Yes - José Miguel Wolf Occupation: Employed through [employer] agency; home with kids Housing: Has stable housing Safe relationships with family/friends/partner: Yes History of trauma: No, besides last hospital experience Nutrition:Adequate hydration, Eating bland foods with nausea in , protein has been difficult Exercise: Managing kids Social Support: Family: Spouse, Mother, and Mother in law Any anglican or cultural factors that may affect your care? Shinto Are there any personal beliefs that would prevent you from accepting blood products? No RISK FACTORS DVT/PE: No Renal disease: no Alcohol dependence: no Tobacco use: no Recreational drug use: none High-risk behaviors: none Occupational exposures: no Screening for sexual, physical or emotional abuse in childhood, adulthood or current relationship: denies REVIEW OF SYSTEMS: Constitutional: Negative for fever and chills . Positive for fatigue. Respiratory: Negative for cough, dyspnea , and wheezing . Cardiovascular: Negative for chest discomfort and palpitations. Gastrointestinal: Negative for abdominal pain. Positive for nausea, vomiting, food aversions Genitourinary:Negative for vaginal bleeding, pelvic pain. Integument/breast: Negative for rash and skin lesion(s). Musculoskeletal:Negative for back pain. Neurological: Negative for headaches and dizziness . Psychiatric:Positive for anxiety and depression, stable now that she is taking medication again. . DEPRESSION SCREEN PHQ Score and Severity 11/30/2022 2:00 PM 08/23/2023 3:00 PM PHQ Depression Screening Date of PHQ exam (doc flow) 11/30/2022 08/23/2023 1. Lack of interest/pleasure 1 - Several days 0 - Not at all 2. Feeling down/depressed 1 - Several days 1 - Several days PHQ-2 TOTAL SCORE 2 1 3. Trouble sleeping 0 - Not at all 0 - Not at all 4. Decreased energy 1 - Several days 2 - More than half the days 5. Appetite change 0 - Not at all 0 - Not at all 6. Feelings of failure 1 - Several days 0 - Not at all 7. Trouble concentrating 0 - Not at all 0 - Not at all 8. Activity level 0 - Not at all 0 - Not at all 9. Hurting yourself 0 - Not at all 0 - Not at all PHQ-9 TOTAL SCORE 4 3 PHQ-9 Severity Level none none Functional Impairment somewhat difficult somewhat difficult Intervention: On medication SANDHYA Score and Severity PHYSICAL EXAM LMP 04/16/2024 (Exact Date) General: well groomed, appears healthy, NAD. Psych: alert, oriented, behaviors appropriate. Exam deferred-Virtual visit ASSESSMENT 28 y.o. at 10w2d Encounter for New OB Midwifery visit Encounter Diagnoses Name Primary? High-risk , first trimester Yes History of pre-eclampsia Patient's pre- BMI: Could not be calculated Recommended weight gain in based on pre- BMI: Prepgt BMI Recommended weight gain 18.5 and below 28 to 40 pounds 18.5 - 24.9 25 to 35 pounds 25 - 29.9 15 to 25 pounds 30 and Above 11 to 20 pounds PLAN Oriented to [facility] service, care model, routine visits, locations, contact information, and patient education resources. Education: [facility] OB packet and Beginnings book/web site, healthy nutrition, dietary supplements, hydration, exercise, sleep hygiene, stress management, medication safety, avoidance of alcohol and drug use, physical and emotional changes of , options for genetic testing (carrier & ). Reviewed AVS with patient. Invite for compass sent. OB Care Coordination: Dating ultrasound - already had with IVF clinic. Maternal carrier screening for CF, SMA - had carrier screening with IVF clini. genetic screening - Declines, had screening during IVF process. Indication for level II anatomy ultrasound? 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 No Immunizations due: no Labs: - New OB panel Yes - ordered today, will draw at next visit , ok to review labs and POC via eBillmet - Pap No. - GC/CT No. -TGC No. - Additional testing indicated No. Current medications reviewed - changes indicated: No. Recommendations for vitamin, folic acid, calcium and vitamin D3 reviewed. ACOG criteria for early GDM screening reviewed - identified risk factors in BOLD below. - Plan for early GDM screening: No Early GDM screening should be considered if BMI >25 (-Stateless w/ BMI >23) and any of the following criteria are met: -Physical inactivity -First-degree relative with diabetes -Racial/ethnic risk (, , , -Stateless, ) -History of infant weight >4 kg (~9 lbs) -History of GDM -PCOS -A1c >5.7%, impaired glucose tolerance, or impaired fasting glucose on prior testing -Clinical conditions associated w/ insulin resistance (pre-gravid BMI >40, acanthosis nigricans) -History of cardiovascular disease USPTF recommendations for low-dose ASA reviewed - identified risk factors in BOLD below. - Patient does have history of gestational hypertension or pre eclampsia . - Low-dose ASA indicated per these guidelines: Yes - discussed, prescription sent to pharmacy HIGH RISK (if any ONE of these risk factors) -Hx of preeclampsia; saad when accompanied by adverse outcome -Multifetal gestation -Chronic HTN -Type 1 or 2 diabetes -Renal disease -Autoimmune disease (SLE, antiphospholipid antibody syndrome, other) MODERATE RISK (consider if two or more of these) -Nulliparity -Obesity w BMI>30 -Family hx of preeclampsia (mother or sister) -Socio-demographic characteristics ( ethnicity, low SES) -Age > or = to 35 years -Personal hx factors (low weight, SGA, previous adverse outcome, > 10 year interval) LOW RISK (do not recommend low-dose aspirin) - Previous uncomplicated full-term delivery w/o hypertension HIGH RISK care plans added to OB problem list entry: IVF , H/o pre-eclampsia, 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 11. Discussed compass via [employer] no - sent via Byban, will further discuss at next visit. Total time: spent 60 minutes for this encounter including patient counseling & examination, documentation & care coordination. Anastasiia Lobato CNM .................... 06/26/2024 9:58 AM [facility] ANICAL TECHNICIAN Last Filed Vital Signs Vital Sign Reading Time Taken Comments Blood Pressure 127/68 12/05/2024 6:06 PM CDT Pulse 105 12/05/2024 6:06 PM CDT Temperature 36.8 C (98.2 F) 12/05/2024 5:13 PM CDT Respiratory Rate 20 12/05/2024 5:13 PM CDT Oxygen Saturation 99% 12/05/2024 6:05 PM CDT Inhaled Oxygen Concentration - - Weight 93.9 kg (207 lb) 12/05/2024 6:15 PM CDT Height 165.1 cm (5' 5) 12/05/2024 6:15 PM CDT Body Mass Index 34.45 12/05/2024 6:15 PM CDT Plan of Treatment Upcoming Encounters Date Type Department Care Team (Late st Contact Info) Description 12/14/2024 1:45 PM CDT Ancillary Procedure [facility] [address] [facility] [place] [address] 12/14/2024 2:40 PM CDT OB Encounter [facility] [address] [facility] [address] Michelle Krishnan, [facility] [address] [place] [address] 12/25/2024 1:00 PM CDT Appointment [facility] [address] [facility] [place] [address] [address] 12/25/2024 1:30 PM CDT Appointment [facility] [address] [place] [address] 12/25/2024 3:00 PM CDT OB Encounter [facility] [address] [facility] [place] [address] Chasity Sunshine, [facility] [address] [facility] [place] [address] 01/04/2025 3:15 PM CDT Ancillary Procedure [facility] [address] [facility] [place] [address] 01/04/2025 4:00 PM CDT OB Encounter [facility] [address] [facility] [place] [place] [address] Mary Lou Avila, CNM [address] [place] [address] 01/10/2025 3:15 PM CDT Ancillary Procedure [facility] [address] [facility] [place] [address] 01/10/2025 4:00 PM CDT OB Encounter [facility] [address] [place] [address] Anastasiia Lobato, [facility] [address] [place] [address] 01/18/2025 1:45 PM CDT Ancillary Procedure [facility] [address] [facility] [place] [address] 01/18/2025 2:40 PM CDT OB Encounter [facility] [address] [facility] [place] [address] Laquita Cameron, [facility] [address] [facility] [place] [address] Health Maintenance Due Date Last Done Comments Hepatitis B series for 19+ (1 of 3 - 19+ 3-dose series) 2015 COVID-19 vaccine series ( season) 2024 08/31/2022 Influenza Vaccine (#1) 2025 , 02/13/2020, 04/14/2019 BMI (ht and wt on same day) for age 18+ 10/16/2025 10/16/2024, 09/06/2024, 08/23/2023, Additional history exists Depression screening for age 12+ 10/16/2025 10/16/2024, 08/23/2023, 11/30/2022, Additional history exists Pap test for age 21-65 08/22/2028 , 08/23/2023, 06/10/2020 Tetanus booster 11/29/2034 11/29/2024, 07/16, 09/25/2020, Additional history exists HIV for age 15-65 Completed 07/25/2024, , 12/04/2021, Additional history exists Hepatitis C screening for age 18-79 Completed 07/25/2024, 12/04/2021, 05/06/2020 Pneumococcal series for age 6-49 Aged Out No longer eligible based on patient's age to complete this topic RSV vaccine for adults or (No Doses Required) Completed Procedures Procedure Name Priority Date/Time Associated Diagnosis Comments NONSTRESS TEST Routine 12/05/2024 7:15 PM CDT CREATININE STAT 12/05/2024 5:30 PM CDT AST (SGOT) STAT 12/05/2024 5:30 PM CDT CBC W PLT NO DIFF STAT 12/05/2024 5:3 0 PM CDT URINE CULTURE LINDSAY 12/05/2024 5:21 PM CDT URINALYSIS MICROSCOPIC STAT 12/05/2024 5:21 PM CDT PROTEIN/CREAT RATIO,URINE Add On 12/05/2024 5:21 PM CDT UA W/ SEDIMENT EXAM REFLEXED PER CRITERIA STAT 12/05/2024 5:21 PM CDT US OB BIOPHYSICAL PROFILE SINGLE W NST Routine 11/29/2024 3:36 PM CDT High-risk , second trimester (HC) BILE ACIDS Routine 11/08/2024 3:46 PM CDT Itching of both hands HEPATIC FUNCTION PANEL Routine 11/08/2024 3:38 PM CDT Itching of both hands GLUCOSE TOLERANCE TEST, GESTATIONAL, 4SPEC (100G) (QUEST) Routine 10/24/2024 9:22 AM CDT Elevated glucose level PROTEIN/CREAT RATIO,URINE Routine 10/16/2024 3:52 PM CDT High-risk , second trimester (HC) CREATININE Routine 10/16/2024 3:47 PM CDT High-risk , second trimester (HC) HEMOGLOBIN Routine 10/16/2024 3:47 PM CDT High-risk , second trimester (HC) PLATELET COUNT Routine 10/16/2024 3:47 PM CDT High-risk , second trimester (HC) GLUCOSE TOLERANCE, GESTATIONAL SCREEN 1H Routine 10/16/2024 3:47 PM CDT High-risk , second trimester (HC) AST (SGOT) Routine 10/16/2024 3:47 PM CDT High-risk , second trimester (HC) US OB FOLLOW UP ANY TRI SINGLE TA Routine 09/25/2024 3:09 PM CDT resulting from assisted reproductive technology in second trimester (HC) ANTI HIV 1/2 Routine 07/25/2024 3:54 PM CDT High-risk , first trimester (HC) ANTI HCV Routine 07/25/2024 3:54 PM CDT High-risk , first trimester (HC) HPV HIGH RISK Routine 08/23/2023 3:51 PM CDT Screening for cervical cancer from Last 3 Months or Most Recently Relevant to Health Maintenance Results * Nonstress Test (12/05/2024 7:15 PM CDT) Narrative Chasity Sunshine CNM - 12/05/2024 7:15 PM CDT Chasity Sunshine CNM 12/05/2024 7:44 PM HEART RATE TRACING INTERPRETATION Patient: Coretta Petersen : 1995 Date of test: 12/05/2024 Strip Time Segment: 1734 to 1809 BLANCA/Acct: [id number] Admitting Physician: Chasity Sunshine CNM Gestational Age: 33w3d GHANSHYAM of 01/20/2025, Alternate GHANSHYAM Entry Reason for Non-Stress test: threatened premature labor Is Patient Having Contractions?: Yes Contractions / Frequency: irregular Contractions Duration (range in sec): 50-70 Contractions Strength By Palpation: Mild Palpated Resting Tone: Soft Patient Perception of Contractions: uncomfortable but tolerable Movement: Present Baseline FHR: 140 Baseline Variability: Moderate Accelerations: Present Age Appropriate Accelerations: 15 X 15;2 in 20 Decelerations / Type: None Acoustic Stimulator: (not recorded) Nonstress Test Interpretation: (not recorded) Reactive Result: Expected result Provider notification: N/A per policy Chasity Sunshine CNM OB PROCEDURE ORD Final Res ult * (ABNORMAL) CBC W PLT NO DIFF (12/05/2024 5:30 PM CDT) [facility] WHITE BLOOD COUNT 10.2 4.5 - 11.0 thou/cu mm 12/05/2024 5:48 PM CDT [facility] RED BLOOD COUNT 3.39(L) 4.00 - 5.20 mil/cu mm 12/05/2024 5:48 PM CDT [facility] HEMOGLOBIN 10.0(L) 12.0 - 16.0 g/dL 12/05/2024 5:48 PM CDT [facility] HEMATOCRIT 30.6(L) 33.0 - 51.0 % 12/05/2024 5:48 PM CDT [facility] MCV 90 80 - 100 fL 12/05/2024 5:48 PM CDT [facility] MCH 29.5 26.0 - 34.0 pg 12/05/2024 5:48 PM CDT [facility] MCHC 32.7 32.0 - 36.0 g/dL 12/05/2024 5:48 PM CDT [facility] RDW 14.4 11.5 - 15.5 % 12/05/2024 5:48 PM CDT [facility] PLATELET COUNT 203 140 - 440 thou/cu mm 12/05/2024 5:48 PM CDT [facility] MPV 9.5 6.5 - 11.0 fL 12/05/2024 5:48 PM CDT [facility] NRBC 0.0 % 12/05/2024 5:48 PM CDT [facility] ABS NRBC 0.0 thou /cu mm 12/05/2024 5:48 PM CDT [facility] Blood BLOOD SPECIMEN / Unknown Venipuncture / Unknown 12/05/2024 5:30 PM CDT 12/05/2024 5:41 PM CDT Chasity Hazel LEGER HEMATOLOGY Final Resu lt Performing Organization Address City/[facility]/ZIP Co de Phone Number [facility] [address] [place] [address], [place] * CREATININE (12/05/2024 5:30 PM CDT) Only the most recent of2 resultswithin the time period is included. eGFR >90 >90 mL/min/1.7 3m2 12/05/2024 6:25 PM CDT [facility] Comment:As of 2021, eG FR is calculated by the CKD-EPI creatinine equation without race adjustment. eGFR can be influenced by muscle mass, exercise, and diet. The reported eGFR is an estimation only and is only applicable if the renal function is stable. CREATININE 0.51 0.50 - 0.90 mg/dL 12/05/2024 6:25 PM CDT [facility] Blood BLOOD SPECIMEN / Unknown Venipuncture / Unknown 12/05/2024 5:30 PM CDT 12/05/2024 5:41 PM CDT Chasity Sunshine CNM CHEMISTRY Final Resu lt Performing Organization Address City/[facility]/ZIP Co de Phone Number [facility] [address] [place] [address], [place] * AST (SGOT) (12/05/2024 5:30 PM CDT) Only the most recent of2 resultswithin the time period is included. AST (SGOT) 22 10 - 35 IU/L 12/05/2024 6:25 PM CDT [facility] Blood BLOOD SPECIMEN / Unknown Venipuncture / Unknown 12/05/2024 5:30 PM CDT 12/05/2024 5:41 PM CDT Chasity Sunshine [facility] CHEMISTRY Final Resu lt Performing Organization Address City/[facility]/ZIP Co de Phone Number [facility] [address] [place] [address], * URINALYSIS MICROSCOPIC (12/05/2024 5:21 PM CDT) RBC 0-2 0-2, None Seen /HPF 12/05/2024 5:37 PM CDT [facility] WBC 3-5 0-2, 3-5, None Seen /HPF 12/05/2024 5:37 PM CDT [facility] BACTERIA None Seen None Seen, Rare, Few Bacteria/ HPF 12/05/2024 5:37 PM CDT [facility] EPITHELIAL CELLS None Seen None Seen, Few Epi/HPF 12/05/2024 5:37 PM CDT [facility] HYALINE CASTS 0-2 0-2, 3-5 /LPF 12/05/2024 5:37 PM CDT [facility] Urine URINE SPECIMEN / Unknown Non-Blood / Unknown 12/05/2024 5:21 PM CDT 12/05/2024 5:21 PM CDT Chasity Sunshine [facility] URINE Final Resu lt Performing Organization Address City/[facility]/ZIP Co de Phone Number [facility] [address] [place] [address], [place] * PROTEIN/CREAT RATIO,URINE (12/05/2024 5:21 PM CDT) Only the most recent of2 resultswithin the time period is included. PROTEIN QUANT,RAND URINE 11 1 - 14 mg/dL 12/05/2024 6:30 PM CDT [facility] CREAT,RANDOM URINE 102.0 28.0 - 217.0 mg/dL 12/05/2024 6:30 PM CDT [facility] PROT/CREAT RATIO,UR 0.1 <0.2 12/05/2024 6:30 PM CDT [facility] Urine URINE SPECIMEN / Unknown Non-Blood / Unknown 12/05/2024 5:21 PM CDT 12/05/2024 5:21 PM CDT Chasity LEGER URINE Final Resu lt Performing Organization Address City/[facility]/ZIP Co de Phone Number [facility] [address] [place] [address], [place] * URINE CULTURE (12/05/2024 5:21 PM CDT) CULTURE <10,000 CFU/mL multiple organisms 12/06/2024 4:38 PM CDT [facility] Urine URINE SPECIMEN / Unknown Non-Blood / Unknown 12/05/2024 5:21 PM CDT 12/05/2024 5:21 PM CDT Chasity Hazel LEGER MICROBIOLOGY Final Resu lt Performing Organization Address City/[facility]/ZIP Co de Phone Number [facility] [address] [place] [address], [place] * (ABNORMAL) Urinalysis W Reflex Microscopic if Positive (12/05/2024 5:21 PM CDT) COLOR Yellow Yellow Color 12/05/2024 5:37 PM CDT [facility] CLARITY Cloudy(A) Clear Clarity 12/05/2024 5:37 PM CDT [facility] SPECIFIC GRAVITY,URINE 1.020 1.010, 1.015, 1.020, 1.025 12/05/2024 5:37 PM CDT [facility] PH,URINE 7.0 6.0, 7.0, 8.0, 5.5, 6.5, 7.5, 8.5 12/05/2024 5:37 PM CDT [facility] UROBILINOGEN, QUALITATIVE Normal Normal EU/dl 12/05/2024 5:37 PM CDT [facility] PROTEIN, URINE Negative Negative mg/dL 12/05/2024 5:37 PM CDT [facility] GLUCOSE, URINE Negative Negative mg/dL 12/05/2024 5:37 PM CDT [facility] KETONES,URINE >=80(A) Negative mg/dL 12/05/2024 5:37 PM CDT [facility] BILIRUBIN,URI NE Negative Negative 12/05/2024 5:37 PM CDT [facility] OCCULT BLOOD,URINE Negative Negative 12/05/2024 5:37 PM CDT [facility] NITRITE Negative Negative 12/05/2024 5:37 PM CDT [facility] LEUKOCYTE ESTERASE Negative Negative 12/05/2024 5:37 PM CDT [facility] Urine URINE SPECIMEN / Unknown Non-Blood / Unknown 12/05/2024 5:21 PM CDT 12/05/2024 5:21 PM CDT us Chasity Sunshine CNM URINE Final Resu lt [facility] [address] [place] [address], [place] * US OB BIOPHYSICAL PROFILE SINGLE W NST (11/29/2024 3:36 PM CDT) Anatomical Region Laterality Modality Ultrasound 11/30/2024 8:26 AM CDT Impressions 11/30/2024 8:26 AM CDT Single viable intrauterine with a biophysical profile 12/22. Dictated by Jaswinder Hudson MD @ Nov 30 2024 8:26AM (Electronically Signed) [email or web address] 11/30/2024 8:26 AM CDT For Patients: As a result of the Cures Act, medical imaging exams and procedure reports are released immediately into your electronic medical record. You may view this report before your referring provider. If you have questions, please contact your health care provider. INDICATION: High-risk . TECHNIQUE: Ultrasound OB pelvis transabdominal. Real-time mondragon-scale imaging of the fetus was performed without stress testing. COMPARISON: 09/25/2024. FINDINGS: heart rate: Regular, 134 bpm. position: Cephalic. Placenta: Anterior. Amniotic fluid volume single deepest pocket 7.6 cm, 2/2. motion 2/2. tone 2/2. breathing movements 2/2. Procedure Note Jaswinder Hudson MD - 11/30/2024 For Patients: As a result of the Cures Act, medical imagingexams and procedure reports are released immediately into your electronicmedical record. You may view this report before your referring provider.If you have questions, please contact your health care provider. INDICATION: High-risk . TECHNIQUE: Ultrasound OB pelvis transabdominal. Real-time mondragon-scale imaging of thefetus was performed without stress testing. COMPARISON: 09/25/2024. FINDINGS: heart rate: Regular, 134 bpm. position: Cephalic. Placenta: Anterior. Amniotic fluid volume single deepest pocket 7.6 cm, 2/2. motion 2/2. tone 2/2. breathing movements 2/2. IMPRESSION: Single viable intrauterine with a biophysical profile 8/8. Dictated by Jaswinder Hudson MD @ Nov 30 2024 8:26AM (Electronically Signed) [email or web address] Michelle Krishnan [facility] US Final Res ult * BILE ACIDS (11/08/2024 3:46 PM CDT) Bile Acids 2.8 0.0 - 10.0 umol/L 11/11/2024 7:09 AM CDT [facility] Blood BLOOD SPECIMEN / Unknown [facility] / Unknown 11/08/2024 3:46 PM CDT 11/08/2024 3:46 PM CDT Narrative [facility] ([facility]) - 11/11/2024 7:09 AM CDT Performed at: [address] [id number] Lap Machine Operator: Aurea Marie MD, Phone: [phone] Chasity LEGER SEND OUTS Final Resu lt Performing Organization Address [facility]/ZIP Co de Phone Number [facility] ([facility]) [address] [place] [address], * HEPATIC FUNCTION PANEL (11/08/2024 3:38 PM CDT) Pathologist [facility] PROTEIN, TOTAL 6.1 6.1 - 8.1 g/dL [facility] ALBUMIN 3.8 3.6 - 5.1 g/dL [facility] GLOBULIN 2.3 1.9 - 3.7 g/dL (calc) [facility] ALBUMIN/GLOBULIN RATIO 1.7 1.0 - 2.5 (calc) [facility] BILIRUBIN, TOTAL 0.4 0.2 - 1.2 mg/dL [facility] BILIRUBIN, DIRECT 0.1 < OR = 0.2 mg/dL [facility] BILIRUBIN, INDIRECT 0.3 0.2 - 1.2 mg/dL (calc) [facility] ALKALINE PHOSPHATASE 110 31 - 125 U/L [facility] AST 21 10 - 30 U/L [facility] ALT 15 6 - 29 U/L [facility] Blood BLOOD SPECIMEN / Unknown 11/08/2024 3:38 PM CDT 11/08/2024 3:39 PM CDT Chasity Sunshine CNM CHEMISTRY Final Resu lt [employer] [facility] [address] [place] [address], [facility] [address] [facility] [place] [address] * GLUCOSE TOLERANCE TEST, GESTATIONAL, 4SPEC (100G) ([facility]) (10/24/2024 9:22 AM CDT) GLUCOSE, FASTING 85 65 - 94 mg/dL [facility] GLUCOSE, 1 HOUR 163 <180 mg/dL [facility] GLUCOSE, 2 HOUR 130 <155 mg/dL [facility] GLUCOSE, 3 HOUR 84 <140 mg/dL [facility] GLUCOSE TOLERANCE TEST, GESTATIONAL,4SPE C(100G) COMMENT [facility] Comment: Coates/Coustan Criteria: Two or more values greater than the above reference intervals are suggestive of gestational diabetes. Blood BLOOD SPECIMEN / Unknown 10/24/2024 9:22 AM CDT 10/24/2024 9:23 AM CDT Michelle LEGER SEND OUTS Final Res ult [facility] [employer] [facility] [address] [place] [address], [place] [phone] [facility] [address] [place] [address] * PLATELET COUNT (10/16/2024 3:47 PM CDT) PLATELET COUNT 261 140 - 400 Thousand/u L [facility] Blood BLOOD SPECIMEN / Unknown 10/16/2024 3:47 PM CDT 10/16/2024 3:48 PM CDT Michelle Krishnan CNM HEMATOLOGY Final Res ult [facility] [employer] [facility] [address] [place] [place] [address], [place] [phone] [facility] [address] [place] [address] * (ABNORMAL) HEMOGLOBIN (10/16/2024 3:47 PM CDT) HEMOGLOBIN 11.6(L) 11.7 - 15.5 g/dL [facility] [place] Blood BLOOD SPECIMEN / Unknown 10/16/2024 3:47 PM CDT 10/16/2024 3:48 PM CDT Michelle LEGER HEMATOLOGY Final Res ult [facility] [address] [place] [address], [place] [phone] [facility] [address] [facility] [place] [address] * (ABNORMAL) GLUCOSE TOLERANCE, GESTATIONAL SCREEN 1H (10/16/2024 3:47 PM CDT) GLUCOSE, GESTATIONAL SCREEN (50G)-140 CUTOFF 155(H) <140 mg/dL [facility] Comment: One hour value of > or = 140 mg/dL indicates the need for a diagnostic 75 g dose 2-hour or 100 g dose 3-hour oral glucose tolerance test; patient fasting is required. Blood BLOOD SPECIMEN / Unknown 10/16/2024 3:47 PM CDT 10/16/2024 3:48 PM CDT Michelle Krishnan CNM CHEMISTRY Final Res ult [facility] [employer] [facility] [address] [facility] [place] [address], [place] [phone] [facility] [address] [facility] [place] [address] * Follow Up Any Trimester (CPT 65323) If BPP w/NST needed use Testing section for order (09/25/2024 3:09 PM CDT) Anatomical Region Laterality Modality , 2or 3 TRIMESTER Ultrasound 09/25/2024 2:56 PM CDT Narrative 09/25/2024 3:45 PM CDT Referred By: ANASTASIIA LOBATO CNM Indications Code 23 weeks gestation of Z3A.23 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 presentation is Breech. EFW 551 grams, percentile: 37. Deepest Vertical Pocket of amniotic fluid: 4.14 cm. No major anomalies identified on limited survey. Previously limited anatomy seen today and appears normal. Appropriate symmetric growth. Placental location: Anterior. The transabdominal cervical length is 4.5 cm. RECOMMENDATIONS: -Return to primary OB provider for continued care. -No alterations in the delivery plan are necessary. -No medication changes are indicated. Continue aspirin due to history of preeclampsia -Weekly testing at 36 weeks' due to IVF - orders placed to schedule with [facility]. -No further growth ultrasounds are indicated. -Patient directed to schedule at the front maker on the way out, or to call MPP within 2 business days to schedule follow up. COMMENT: The patient was seen by the Perinatologist today. The previous ultrasound and the records were reviewed. The results of today's ultrasound were communicated to the patient. Government regulations related to the Century Cures act require that this note be released to the patient immediately, sometimes before the referring provider has been contacted. A portion of the information was presented verbally to the patient. The remainder is submitted as background for the referring provider, to be discussed as needed. Medical Decision Making: Moderate Complexity 57310 Multiple Diagnoses including with IVF gestation, prior child with anomalies and limited anatomic survey in current , history of preeclampsia Moderate Data including review of prior ultrasound and review of prior external notes, ordering testing Minimal risk of morbidity or mortality to the fetus from additional testing. 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 presentation is Breech. EFW 551 grams, percentile: 37. Deepest Vertical Pocket of amniotic fluid: 4.14 cm. No major anomalies identified on limited survey. Previously limitedanatomy seen today and appears normal. Appropriate symmetric growth. Placental location: Anterior. The transabdominal cervical length is 4.5 cm. RECOMMENDATIONS: -Return to primary OB provider for continued care. -No alterations in the delivery plan are necessary. -No medication changes are indicated. Continue aspirin due to history ofpreeclampsia -Weekly testing at 36 weeks' due to IVF - orders placed toschedule with MPP. -No further growth ultrasounds are indicated. -Patient directed to schedule at the front maker on the way out, or to callMPP within 2 business days to schedule follow up. COMMENT: The patient was seen by the Perinatologist today. The previous ultrasoundand the records were reviewed. The results of today's ultrasound werecommunicated to the patient. Government regulations related to the Cures act require thatthis note be released to the patient immediately, sometimes before the referring provider hasbeen contacted. A portion of the information was presented verbally to the patient. Theremainder is submitted as background for the referring provider, to be discussed as needed. Medical Decision Making: Moderate Complexity 48625 Multiple Diagnoses including with IVF gestation, prior childwith anomalies and limited anatomic survey in current , history of preeclampsia Moderate Data including review of prior ultrasound and review of priorexternal notes, ordering testing Minimal risk of morbidity or mortality to the fetus from additionaltesting. Services Provided: ProceduresCode FOLLOW UP [id number] us Pili Mendiola MD US F inal Result * ANTI HCV (07/25/2024 3:54 PM CDT) HEPATITIS C ANTIBODY NON-REACTI VE NON-REACT ALBERTO [facility] [place] Comment: HCV antibody was non-reactive. There is no laboratory evidence of HCV infection. In most cases, no further action is required. However, if recent HCV exposure is suspected, a test for HCV RNA (test code 76356) is suggested. For additional information please refer to http://[employer]/faq/YXH00y9 (This link is being provided for informational/ educational purposes only.) Blood BLOOD SPECIMEN / Unknown 07/25/2024 3:54 PM CDT 07/25/2024 3:55 PM CDT Anastasiia LEGER SEND OUTS Pauline l Result Performing Organization Address [facility] de Phone Number [employer] [address] [address], [facility] [address] [place] [phone] * ANTI HIV 1/2 (07/25/2024 3:54 PM CDT) [facility] HIV AG/AB, 4TH GEN NON-REACT ALBERTO NON-REACT ALBERTO [facility] Comment: HIV-1 antigen and HIV-1/HIV-2 antibodies were not detected. There is no laboratory evidence of HIV infection. PLEASE NOTE: This information has been disclosed to you from records whose confidentiality may be protected by state law. If your state requires such protection, then the state law prohibits you from making any further disclosure of the information without the specific written consent of the person to whom it pertains, or as otherwise permitted by law. A general authorization for the release of medical or other information is NOT sufficient for this purpose. For additional information please refer to http://[employer]/faq/SBU079 (This link is being provided for informational/ educational purposes only.) The performance of this assay has not been clinically validated in patients less than 2 years old. Blood BLOOD SPECIMEN / Unknown 07/25/2024 3:54 PM CDT 07/25/2024 3:55 PM CDT Anastasiia Lobato CNM SEND OUTS Pauline l Result Performing Organization Address [facility] Co de Phone Number [employer] [address] [place] [address], [facility] [address] [place] [address] * HPV HIGH RISK (08/23/2023 3:51 PM CDT) TYPE 16 Negative Negative 08/26/2023 7:50 AM CDT [facility] TYPE 18 Negative Negative 08/26/2023 7:50 AM CDT [facility] OTHER HIGH RISK TYPES Negative Negative 08/26/2023 7:50 AM CDT [facility] Other (Cervical) Non-Blood / Unknown 08/23/2023 3:51 PM CDT 08/24/2023 3:16 PM CDT Narrative [facility] - 08/26/2023 7:50 AM CDT HPV types 16, 18, 31, 33, 35, 39, 45, 51, 52, 56, 58, 59, 66 and 68 DNA were undetectable or below the pre-set threshold. Methodology: Ginette Jessica 4800 HPV Test Kimberly Ann DO MICROBIOLOGY Final Result [facility] [address] [place] [address], from Last 3 Months or Most Recently Relevant to Health Maintenance Insurance [facility] [employer] Advance Directives * Full Code (Latest Code Status on File) Date Activated Date Inactivated Comments 10/17/2022 4:59 PM 10/19/2022 6:52 PM Question Answer Comments Code Status Discussion: Reviewed Preferences Care Teams Dry Cans Back Tender Relationship Specialty Start Date End Date Darlin Curtis MD [address] [place] [address] PCP - General Family Practice 03/11/13
--- OUTSIDE RECORDS SUMMARY | 2024-12-08 12:56 | XMS_ITS | Clinical Summary ---
Author Organization [facility] Address [address] [place] [address] Care Team Providers Care Block Chopper Hand Name Role Phone Jael Nance APRN, CNM Primary Care Provider Source Comments You are receiving this document as you are listed as the primary care provider,follow-up provider, or the patient has been referred to you for consultation.This is in compliance with the Medicare andOhio[facility] Hospital[facility] EHR Incentive Program,which states Providers who transition their patient to another setting of careor provider of care or refers their patient to another provider of care shouldprovide summary care record for each transition of care or referral. [facility] Allergies Active Allergy Reactions Criticality Noted Date Comments Penicillins Hives 12/03/2015 Medications ALBUterol 2.5 mg/3 mL, 0.083%, nebulizer solutionIndicati ons:Abscess of groin, left Inhale 2.5 mg every 6 hours as needed for Wheezing. Active ALBUterol sulfate HFA 108 (90 BASE) MCG/ACT inhaler Inhale 2 Puffs. 10/26/2014 Active cholecalciferol (VITAMIND3) 1000 units capsule Take 1 Tablet by mouth. Active multivitamin with minerals (THERA M PLUS) tablet Take 1 Tablet by mouth. Active vitamin A 71103 units capsule Take 20,000 Units by mouth daily. Active Active Problems No known active problems Social History Tobacco Use Types Packs/Day Years Used Date Smoking Tobacco: Never Smokeless Tobacco: Never Alcohol Use Standard Drinks/Week Comments No 0 (1 standard drink = 0.6 oz pur e alcohol) Comments No Sex and Gender Information Value Date Recorded Sex Assigned at Not on file Legal Sex Female 4:23 PM CDT Gender Identity Not on file Sexual Orientation Not on file Last Filed Vital Signs Vital Sign Reading Time Taken Comments Blood Pressure 116/71 07/07/2018 8:17 AM [employer] Pulse 94 07/07/2018 8:17 AM [employer] Temperature 36.8 C (98.2 F) 07/07/2018 8:17 AM [employer] Respiratory Rate 16 07/07/2018 8:17 AM [employer] Oxygen Saturation 96% 07/07/2018 8:17 AM [employer] Inhaled Oxygen Concentration - - Weight 57.2 kg (126 lb 3.2 oz) 11/13/2016 10:04 AM CDT Height 165.1 cm (5' 5) 12/03/2015 3:50 PM CDT Body Mass Index 21 12/03/2015 3:50 PM CDT Plan of Treatment Health Maintenance Due Date Last Done Comments Cervical Cancer Screening Due 1996 Hep C Screening (Preventive Services) 1996 HIV Screening (Preventive Services) 2012 Adult Preventive Visit 2014 HepB Vaccine (1) 2015 DTaP/Tdap/Td Vaccine (2 - Tdap) 02/15/2018 8 COVID-19 Vaccine ( - 2023-2 5 season) 2024 Influenza Vaccine (#1) 2025 Zoster/Shingles Vaccine (1 of 2) 2046 HPV Vaccine Aged Out No longer eligi ble based on patient's age to complete this topic HepA Vaccine Aged Out No longer eligi ble based on patient's age to complete this topic Hib Vaccine Aged Out No longer eligi ble based on patient's age to complete this topic IPV (Polio) Vaccine Aged Out No longe r eligible based on patient's age to complete this topic MCV4 Vaccine Aged Out No longer eligi ble based on patient's age to complete this topic Meningococcal B Vaccine Aged Out No l onger eligible based on patient's age to complete this topic Pneumococcal Vaccine Aged Out No long er eligible based on patient's age to complete this topic Insurance [facility] BLUE LINK Care Teams Block Chopper Hand Relationship Specialty Start Date End Date Jael Nance APRN, [place] [address] PCP - General 12/03/15
--- OUTSIDE RECORDS SUMMARY | 2024-12-08 12:56 | XMS_ITS | Clinical Summary ---
Author Organization [facility] Address [address] [place] [id number] Care Team Providers Care Mainframe Analyst Name Role Phone No Ref-Primary, Physician Primary Care Provider Allergies Active Allergy Reactions Criticality Noted Date Comments Penicillins Hives 12/03/2015 vomiting Medications albuterol (PROAIR HFA/PROVENTIL HFA/VENTOLIN HFA) 108 (90 BASE) MCG/ACT Inhaler Inhale 2 puffs into the lungs as needed for shortness of breath / dyspnea or wheezing Active VITAMIN A PO Take 1 tablet by mouth daily Active Cholecalciferol (VITAMIN D PO) Take 1 tablet by mouth daily Active multivitamin w/minerals (MULTI-VITAMIN) tablet Take 1 tablet by mouth daily Active clomiPHENE (CLOMID) 50 MG tabletIndicatio ns:Infertility management Take 2 tablets (100 mg) by mouth daily for 5 days Start taking medication on cycle day 3 10 tablet 9 Active Active Problems Problem Noted Date Diagnosed Date Menorrhagia with regular cycle 10/27/2017 Dysmenorrhea 10/27/2017 Immunizations Immunization Administration Dates Next Due TDAP Vaccine (Boostrix) [...] School Help Needed Not on file 02/05 Comments No Sex and Gender Information Value Date Recorded Sex Assigned at Not on file Legal Sex Female 4:07 PM CDT Gender Identity Not on file Sexual Orientation Not on file Last Filed Vital Signs Vital Sign Reading Time Taken Comments Blood Pressure 112/70 08/16/2018 10:10 AM CDT Pulse 68 06/23/2018 10:13 AM [employer] Temperature 36.9 C (98.4 F) 05/30/2017 9:47 AM [employer] Respiratory Rate 16 05/30/2017 9:47 AM [employer] Oxygen Saturation 96% 05/30/2017 9:47 AM [employer] Inhaled Oxygen Concentration - - Weight 61.7 kg (136 lb) 08/16/2018 10:10 AM CDT Height 165.1 cm (5' 5) 08/16/2018 10:10 AM CDT Body Mass Index 22.63 08/16/2018 10:10 AM CDT Plan of Treatment Not on file Insurance [facility] Care Teams Mainframe Analyst Relationship Specialty Start Date End Date No Ref-Primary, Physician PCP - General 05/06/17
[2024-12-08 13:21] VITALS: BP 113/78; PULSE 104; RESP 18; TEMP 35.6; O2SAT 98; BMI 33.9
--- NOTE | 2024-12-08 13:45 | ED.GENADULT ---
HPI - General Adult General Chief complaint: Unspecified Complaint, Adult Stated complaint: Low potassium Time Seen by Provider: 12/08/24 13:24 History of Present Illness HPI narrative: Patient is a 29-year-old woman who is 34 weeks . This is her 3rd and the other 2 pregnancies went well. She really is having no difficulties with exception of diffuse muscle pain that she began having earlier this week. She saw her OBGYN earlier in the week and had nonstress test which was normal. Patient was sent home but went to urgent care earlier today and has a potassium of 2.8 with an AST of 60 and ALT of 43 and a CK of 185. Patient was sent in for further evaluation. Patient has had no abdominal pain no vaginal bleeding no nausea no vomiting no fevers no chills. She has a hard time taking her vitamins as it causes significant nausea. Patient has minimal comorbidities. Related Data Home Medications ?Medication ?Instructions ?Recorded ?Confirmed cholecalciferol (vitamin D3) 50 50 mcg PO QDAY 02/24/24 12/08/24 mcg (2,000 unit) capsule fluoxetine 20 mg capsule 20 mg PO QDAY 02/24/24 12/08/24 vits 75-iron 28 mg-folic pkg PO 02/24/24 12/08/24 acid 800 mcg-omega3 440 mg oral pack (One Daily ) acetaminophen 500 mg oral powder 1,000 mg PO Q6H PRN 12/08/24 12/08/24 packet (Tylenol Extra Strength) cyclobenzaprine 10 mg tablet mg PO 12/08/24 12/08/24 ibuprofen 200 mg tablet 400 mg PO QDAY 12/08/24 12/08/24 Previous Rx's ?Medication ?Instructions ?Recorded potassium chloride 20 mEq 20 meq PO DAILY #10 tabs 12/08/24 tablet,extended release Allergies Allergy/AdvReac Type Severity Reaction Status Date / Time No Known Drug Allergies Allergy Verified 12/08/24 09:34 Review of Systems Status of ROS: Reports: 10 or more systems reviewed and unremarkable except as noted in History and below PFSH PFSH Social History Smoking Status: Never smoker Do you use any of these nicotine containing products: None Second hand tobacco smoke exposure: No How often do you have a drink containing alcohol: never How often do you have six or more drinks on one occasion: Never AUDIT-C Alcohol total score: 0 Non-prescribed substance use: denies use service: No Exam Narrative: Exam Narrative: EXAM GENERAL: Patient appears comfortable and well. EYES: No scleral icterus. ENT: Tympanic membranes and oropharynx normal. THYROID: no thyroid nodules or thyromegaly. LYMPH: No supraclavicular or cervical lymphadenopathy. SKIN: Visible skin seen during exam normal or with benign process only. EXT: No dependent lower extremity pedal edema. HEART: Regular rate and rhythm with no murmurs, rubs, or gallops. LUNGS: Clear to auscultation bilaterally with no crackles or wheezes. ABD: Soft, non tender, non distended. PSYCH: Good eye contact, speech is not pressured. Const: Vital Signs, click to edit/add: Vital Signs - 24 hr 12/08/24 13:21 Temperature 96.0 F L Pulse Rate [Pulse Oximeter] 104 H Respiratory Rate 18 Blood Pressure [Ri ght Upper Arm] 113/78 Pulse Oximetry 98 Oxygen Delivery Me thod Room Air Course Vital Signs Vital signs: Initial Vital Signs Temperature 96.0 F L 12/08/24 13:21 Temperature Source Temporal Artery Scan 12/08/24 13:21 Pulse Rate 104 H 12/08/24 13:21 Respiratory Rate 18 12/08/24 13:21 Blood Pressure 113/78 12/08/24 13:21 Blood Pressure Mean 89 12/08/24 13:21 Blood Pressure Position Sitting 12/08/24 13:21 Pulse Oximetry 98 12/08/24 13:21 Oxygen Delivery Method Room Air 12/08/24 13:21 Vital Signs Temperature 96.0 F L 12/08/24 13:21 Pulse Rate 104 H 12/08/24 13:21 Respiratory Rate 18 12/08/24 13:21 Blood Pressure 113/78 12/08/24 13:21 Pulse Oximetry 98 12/08/24 13:21 Oxygen Delivery Method Room Air 12/08/24 13:21 Temperature 96.0 F L 12/08/24 13:21 Pulse Rate 104 H 12/08/24 13:21 Respiratory Rate 18 12/08/24 13:21 Blood Pressure 113/78 12/08/24 13:21 Pulse Oximetry 98 12/08/24 13:21 Oxygen Delivery Method Room Air 12/08/24 13:21 Medications Administered Medications: Discontinued Medications Generic Name Dose Route Start Last Admin Trade Name Freq PRN Reason Stop Dose Admin Potassium Chloride 10 meq in 100 mls @ 100 mls/hr 12/08/24 14:00 12/08/24 15:41 Potassium Chloride IVPB 12/08/24 16:29 200 mls/hr Q90M DINORA Administration Potassium Bicarbonate 25 meq 12/08/24 14:17 12/08/24 14:43 Potassium Bicarb 25 Meq Effervescent Tab PO 12/08/24 14:18 25 meq ONCE ONE Administration Medical Decision Making MDM Narrative Medical decision making narrative: Patient is a 29-year-old woman who came in with muscle cramps. She was found have a potassium of 2.80 urgent care. I did speak with both her local earth science professor as well as her network security analyst and were not certain why the patient has low potassium. She is not on any diuretics. She is on SSRI. In any case we did replace her potassium both oral and IV and her potassium did come up to 3.7. She is feeling better. The OB nurses were over and did monitoring and all is well with the baby. This time she will be discharged home on potassium chloride 20 daily. She will have a repeat potassium in 3-4 days her network security analyst clinic. Lab Data Labs: Lab Results 12/08/24 Range/Units 17:55 Sodium 133 L (135-149) mmol/L Potassium 3.7 (3.6-5.1) mmol/L Chloride 107 (96-114) mmol/L Carbon Dioxide 18 L (20-32) mmol/L Anion Gap 8 (7-15) mEq/L BUN 6 (5-24) mg/dL Creatinine 0.4 L (0.5-1.5) mg/dL Estimated Creat Clear 188.42 Estimated GFR 138 ml/min Glucose 141 H (60-115) mg/dL Calcium 8.3 L (8.4-10.6) mg/dL Discharge Plan Discharge Clinical Impression: Acute hypokalemia Patient Disposition: Home, Self-Care Condition: Stable Instructions: Hypokalemia (ED) Additional Instructions: Potassium chloride 20 mEq daily as directed Rest Fluids Follow-up with your OBGYN clinic in 3-4 days with a potassium level. Activity Level: No Restrictions Discharge Diet: Regular Prescriptions: New potassium chloride 20 mEq tablet extended release 20 meq PO DAILY Qty: 10 2RF No Action cyclobenzaprine 10 mg tablet PO ibuprofen 200 mg tablet 400 mg PO QDAY Tylenol Extra Strength 500 mg powder in packet 1,000 mg PO Q6H PRN fluoxetine 20 mg capsule 20 mg PO QDAY One Daily 28-800-440 mg-mcg-mg combo pack PO cholecalciferol (vitamin D3) 50 mcg (2,000 unit) capsule 50 mcg PO QDAY Follow Up/Referrals: Kimberly Ann DO [Primary Care Provider, Family Practice] Stand Alone Forms: [facility] Info Instructions
[2024-12-08] MEDS: POTASSIUM CHLORIDE 10 MEQ/100 ML PIGGYBACK 200 MEQ IVPB ×2 (14:10→15:41)
[2024-12-08] MEDS: POTASSIUM BICARB 25 MEQ EFFERVESCENT TAB PO (14:43)
[2024-12-08 18:10] LABS: Chloride* 107 mmol/L (96-114); Potassium* 3.7 mmol/L (3.6-5.1); Sodium* 133 mmol/L (135-149)
[2024-12-08 18:13] LABS: Anion Gap 8 mEq/L (7-15); Blood Urea Nitrogen* 6 mg/dL (5-24); Calcium* 8.3 mg/dL (8.4-10.6); Carbon Dioxide* 18 mmol/L (20-32); Creatinine* 0.4 mg/dL (0.5-1.5); Est. Creatinine Clearance* 188.42; Estimated Glomerular Filt Rate 138 ml/min; Glucose* 141 mg/dL (60-115)
[2024-12-08 18:45] VITALS: BP 118/70; PULSE 98; RESP 18; O2SAT 98
--- NOTE | 2024-12-08 20:26 | PC.OBNST ---
NST Note NST Note Start: 12/08/24 14:00 Freq: ONCE Status: Active Protocol: Document 12/08/24 16:20 FJZ (Rec: 12/08/24 20:26 FJCristiana Desktop) NST Note 3 Para (# of births) 2 EDC 01/20/25 Gestational Age In 33 Weeks & 6 Days Weeks & Days Patient Presented Other with Complaint(s) of Other Complaints pt in ED with hypokalemia Reactive Yes RN Shayne Montaño RN Date 12/08/24 Reactive Yes SPENCER Sabillon RN Date 12/08/24 OB NST charge Yes Complete NST Note Yes via Write Note The provider's electronic signature indicates the NST is reactive/appropriate for gestational age. *Note to provider: If an addendum is required, open the patient's chart and click on the note under the Nurse/Allied Health tab.
== END 2024-12-08 18:50 | disposition home or self-care (01) ==
PROVIDERS: Emergency Provider Internal Medicine; PCP Family Medicine
DX: E87.6 Hypokalemia (principal); R25.2 Cramp and spasm; Z3A.34 34 weeks gestation of pregnancy; M79.10 Myalgia, unspecified site
CPT/HCPCS: 36415; 59025; 80048; 93005; 99284; A9270; J3480